=== PATIENT | male | born 1995 | race Asian ===

== ENCOUNTER → 2023-10-24 | Outpatient (REF) | LOC: M PLAIMG 09:02 | PROVIDERS: ATTEND Internal Medicine | DX: M54.2 Cervicalgia (principal); M54.50 Low back pain, unspecified; M25.551 Pain in right hip ==

== ENCOUNTER → 2024-01-08 | Outpatient (REF) | payer OTHER | LOC: M LAB REF 15:27 | PROVIDERS: ATTEND Physician Assistant Medical | DX: R19.7 Diarrhea, unspecified (principal) ==

== ENCOUNTER → 2024-04-03 | Outpatient (REF) | payer OTHER | LOC: M LAB REF 14:31 | PROVIDERS: ATTEND Physician Assistant Medical | DX: Z20.828 Contact with and (suspected) exposure to other viral communicable diseases (principal); B96.81 Helicobacter pylori [H. pylori] as the cause of diseases classified elsewhere ==